=== PATIENT | male | born 1935 | race Caucasian/White ===

== ENCOUNTER 2017-09-24 20:29 | Observation (INO) | payer MEDICARE ==
[~2017-09-24] VITALS: Ht 182.9 cm; Wt 88.0 kg
[2017-09-24 20:57] LABS: BASOPHILS % (AUTO) 0.9 % (0.0-5.0); HEMATOCRIT 44.5 % (42-54); MEAN CORPUSCULAR HGB CONC 34.5 g/dL (32.0-36.0); MEAN CORPUSCULAR VOLUME 89.9 fL (79-99); NEUTROPHILS % (AUTO) 66.1 % (40.0-77.0); PLATELET COUNT (AUTO) 243 K/uL (130-400); RED BLOOD CELL COUNT(AUTO) 4.95 MIL/uL (4.50-6.20); WHITE BLOOD COUNT (AUTO) 6.7 K/uL (4.8-10.8)
[2017-09-24 21:01] LABS: CREATININE 1.1 mg/dL (0.5-1.5); INR 1.01 (0.85-1.15); PARTIAL THROMBOPLASTIN TIME 28.7 SEC (26.3-35.5); POTASSIUM 4.3 mmol/L (3.5-5.1); PROTHROMBIN TIME 10.6 SEC (9.6-11.6)
[2017-09-24] MEDS ORDERED: ACETAMINOPHEN 325 MG TAB ONE (21:06)
[2017-09-24 21:30] LABS: ALBUMIN 3.2 g/dL (3.5-5.0); BILIRUBIN,TOTAL 0.7 mg/dL (0.2-1.0); TOTAL PROTEIN, SERUM 7.2 g/dL (6.0-8.3)
[2017-09-24] MEDS ORDERED: HYDRALAZINE HCL 20 MG/ML VIAL IV PRN (22:15)
[2017-09-24] MEDS ORDERED: MORPHINE SULFATE 2 MG/ML 1ML SYG IM PRN (22:15)
[2017-09-24] MEDS ORDERED: ONDANSETRON HCL 4 MG/2 ML VIAL IV PRN (22:15)
[2017-09-24] MEDS ORDERED: HYDROCODONE/ACETAMINOPHEN 5/325 MG TAB PO PRN (22:15)
[2017-09-24] MEDS ORDERED: ACETAMINOPHEN 325 MG TAB PO PRN ×2 (22:15)
[2017-09-24] MEDS ORDERED: LABETALOL 20 MG/4 ML DISP.SYRIN IV PRN (22:15)
[2017-09-25] VITALS: BP 145/90
[2017-09-25] MEDS ORDERED: PHARMACY COMMUNICATION MISC SCH (01:00)
[2017-09-25] MEDS ORDERED: IPRATROPIUM/ALBUTEROL SULFATE 3 ML SOLUTION IH PRN (01:15)
[2017-09-25 04:00] VITALS: BP 132/79
[2017-09-25 04:26] LABS: HEMATOCRIT 48.2 % (42-54); MEAN CORPUSCULAR HEMOGLOBIN 30.4 pg (27.0-33.0); MEAN CORPUSCULAR HGB CONC 33.9 g/dL (32.0-36.0); MEAN CORPUSCULAR VOLUME 89.8 fL (79-99); PLATELET COUNT (AUTO) 253 K/uL (130-400); RED BLOOD CELL COUNT(AUTO) 5.37 MIL/uL (4.50-6.20); RED CELL DISTRIBUTION WIDTH 13.2 % (11.0-15.5)
[2017-09-25 04:42] LABS: HEMOGLOBIN A1C 5.7 % (4.0-6.0)
[2017-09-25 04:48] LABS: B-TYPE NATRIURETIC PEPTIDE 79 pg/mL (0-100)
[2017-09-25 04:52] LABS: THYROID STIMULATING HORMONE 1.31 uIU/mL (0.36-3.74)
[2017-09-25] MEDS ORDERED: ASPI-555 PO (06:54)
[2017-09-25] MEDS ORDERED: FORM20VI2 IH (06:54)
[2017-09-25] MEDS ORDERED: OMEG100033 PO (06:54)
[2017-09-25] MEDS ORDERED: ROSU20TA PO (06:54)
[2017-09-25] MEDS ORDERED: TIOT18CA3 IH (06:54)
[2017-09-25] MEDS ORDERED: CARB28DR OP (06:54)
[2017-09-25 07:00] VITALS: BP 150/84
[2017-09-25] MEDS ORDERED: ENOXAPARIN SODIUM 40 MG/0.4 ML SYRINGE SQ SCH (09:00)
[2017-09-25] MEDS ORDERED: PANTOPRAZOLE SODIUM 40 MG TABLET.DR PO SCH (09:00)
[2017-09-25 11:00] VITALS: BP 135/85
[2017-09-25 13:01] LABS: CREATINE KINASE MB 4.6 ng/mL (0.5-3.6); CREATINE KINASE, TOTAL 92 U/L (21-232); MYOGLOBIN 94 ng/mL (10-92); TROPONIN I < 0.04 ng/mL (0.00-0.06)
[2017-09-25] MEDS ORDERED: ALBUTEROL SULFATE 0.083% 2.5 MG/3 ML INH IH SCH (14:00)
[2017-09-25 16:21] VITALS: BP 123/75
[2017-09-25] MEDS ORDERED: IPRATROPIUM 0.5 MG/2.5 ML INH IH SCH (18:00)
[2017-09-25 18:42] LABS: CREATINE KINASE MB 3.7 ng/mL (0.5-3.6); CREATINE KINASE, TOTAL 85 U/L (21-232); MYOGLOBIN 88 ng/mL (10-92); TROPONIN I < 0.04 ng/mL (0.00-0.06)
[2017-09-25] MEDS ORDERED: ATORVASTATIN CALCIUM 40 MG TABLET PO SCH (21:00)
[2017-09-26] MEDS ORDERED: ASPIRIN 81 MG EC TAB PO SCH (09:00)
== END 2017-09-25 19:00 | disposition home or self-care (01) ==
LOC: EDH 20:32 → EDHIP 22:03 → 3CH 22:57
PROVIDERS: ADMIT Family Medicine; ATTEND Family Medicine
DX: I25.10 Atherosclerotic heart disease of native coronary artery without angina pectoris (principal); J44.9 Chronic obstructive pulmonary disease, unspecified; E78.5 Hyperlipidemia, unspecified; Z95.1 Presence of aortocoronary bypass graft; Z82.49 Family history of ischemic heart disease and other diseases of the circulatory system; E66.9 Obesity, unspecified; Z79.899 Other long term (current) drug therapy; Z79.82 Long term (current) use of aspirin
CPT/HCPCS: 36415 ×2; 71045; 71046; 80053; 80061; 82550 ×3; 82553 ×3; 83036; 83874 ×3; 83880; 84443; 84484 ×3; 85025; 85027; 85610; 85730; 93005; 93306; 94640; 94664; 96372; 99285; G0378 ×21; J1650